=== PATIENT | female | born 1995 | race Caucasian/White ===

== ENCOUNTER 2018-11-11 14:01 | Emergency (ER) | payer BC ==
--- NOTE | 2018-11-11 14:28 | EDM.PDOC ---
ED HPI GENERAL MEDICAL PROBLEM - General Chief Complaint: ENT Problem Stated Complaint: POSSIBLE TONSILITIS Time Seen by Provider: 11/11/18 14:15 Source of Information: Reports: Patient History Limitations: Reports: No Limitations - History of Present Illness INITIAL COMMENTS - FREE TEXT/NARRATIVE: Patient states she has been having on and off sore throat for the last 2 weeks secondary to sinus drainage but this morning she got up and looked in the mirror and saw pus pockets in the back of her throat called her mother mother told her to come the emergency room she's been diagnosed with tonsillitis over the last year 3 times all intestine negative for strep patient denies any fever or chills headache dizziness she states she has a mild cough worse with laying down secondary to allergies has no other complaints at this time has been eating and drinking normally Duration: Week(s): Quality: Reports: Ache Severity: Mild Improves with: Reports: None Worsens with: Reports: None Associated Symptoms: Reports: No Other Symptoms Treatments [employer]: Reports: Other (see below) (none) Posterior Throat Pain Score (Numeric/FACES): 8 - Related Data Allergies Allergy/AdvReac Type Severity Reaction Status Date / Time amoxicillin Allergy Hives Verified 11/11/18 14:16 shellfish derived Allergy Anaphylactic Verified 11/11/18 14:16 Shock Past Medical History Other HEENT History: tonsilitis Social & Family History - Tobacco Use Smoking Status *Q: Unknown Ever Smoked ED ROS ENT - Review of Systems Review Of Systems: See Below Constitutional: Reports: No Symptoms. Denies: Fever, Chills, Malaise, Weakness , Fatigue HEENT: Reports: Throat Pain, Throat Swelling. Denies: Ear Discharge, Ear Pain, Nose Pain, Rhinitis, Sinus Problem Respiratory: Reports: No Symptoms Cardiovascular: Reports: No Symptoms Endocrine: Reports: No Symptoms GI/Abdominal: Reports: No Symptoms : Reports: No Symptoms Musculoskeletal: Reports: No Symptoms Skin: Reports: No Symptoms Neurological: Reports: No Symptoms Psychiatric: Reports: No Symptoms Hematologic/Lymphatic: Reports: No Symptoms Immunologic: Reports: No Symptoms ED EXAM, ENT - Physical Exam Exam: See Below Exam Limited By: No Limitations General Appearance: Alert, WD/WN, No Apparent Distress Eye Exam: Bilateral Eye: EOMI, PERRL Ears: Normal External Exam, Normal Canal, Hearing Grossly Normal, Normal TMs Nose: Normal Inspection, Normal Mucousa, No Blood Mouth/Throat: Normal Inspection, Normal Gums, Normal Lips, Normal Oropharynx, Normal Teeth, Other (Patient has a Mallampati score of 1 has a patent airway has bilateral cryptic tonsils with mild edema and mild erythema in line uvula no deviation no exudate) Head: Atraumatic ( has a central criteria of 2), Normocephalic Neck: Normal Inspection, Supple, Non-Tender, Full Range of Motion. No: Limited Range of Motion, Lymphadenopathy (L), Lymphadenopathy (R) Respiratory/Chest: No Respiratory Distress, Lungs Clear, Normal Breath Sounds, No Accessory Muscle Use Cardiovascular: Normal Peripheral Pulses, Regular Rate, Rhythm GI/Abdominal: Normal Bowel Sounds, Soft, Non-Tender, No Organomegaly Back: Full Range of Motion Extremities: Normal Inspection, Normal Range of Motion Neurological: Alert, Oriented, CN II-XII Intact, Normal Cognition, Normal Gait Psychiatric: Normal Affect, Normal Mood Skin: Warm, Dry, Intact, Normal Color Lymphatic: No Adenopathy Course - Vital Signs Text/Narrative:: Rapid strep is negative patient had a centior criteria of 2 culture not recommended at this time patient will be advised to gargle , spit with warm salt water every 3-4 hours take [id number] decongestants and Tylenol Motrin as needed follow-up with her primary care provider the next 2-3 days return to the emergency room if anything changes or gets worse Last Recorded V/S: Last Vital Signs Temp 36.7 C 11/11/18 14:08 Pulse 73 11/11/18 14:08 Resp 16 11/11/18 14:08 BP 143/83 H 11/11/18 14:08 Pulse Ox 97 11/11/18 14:08 - Orders/Labs/Meds Orders: Active Orders 24 hr Category Date Time Status STREP A POC, FOR ED [POC] Stat Lab 11/11/18 14:30 Received Departure - Departure Time of Disposition: 14:45 Disposition: Home, Self-Care 01 Condition: Good Clinical Impression: Pharyngitis - Discharge Information Instructions: Pharyngitis, [id number] Forms: ED Department Discharge - Problem List & Annotations (1) Pharyngitis SNOMED Code(s): 665687375 Code(s): J02.9 - ACUTE PHARYNGITIS, UNSPECIFIED Status: Acute Current Visit: No - My Orders Last 24 Hours: My Active Orders 11/11/18 14:30 STREP A POC, FOR ED [POC] Stat - Assessment/Plan Last 24 Hours: My Active Orders 11/11/18 14:30 STREP A POC, FOR ED [POC] Stat
== END 2018-11-11 15:10 | disposition home or self-care (01) ==
LOC: VM.ED 14:01
DX: J02.9 Acute pharyngitis, unspecified (principal); Z91.013 Allergy to seafood; Z88.1 Allergy status to other antibiotic agents
CPT/HCPCS: 87081; 87880-QW; 99283